=== PATIENT | female | born 1965 | race Asian ===

== ENCOUNTER 2020-07-29 00:45 | Emergency (ER) | payer OTHER ==
[2020-07-29 01:01] VITALS: BP 134/92
[2020-07-29] MEDS ORDERED: IBUPROFEN 600 MG TABLET PO STA (01:22)
[2020-07-29] MEDS ORDERED: ACETAMINOPHEN 325 MG TABLET PO STA (01:22)
--- NOTE | 2020-07-29 01:28 | ED Physician Documentation ---
History of Present Illness - Stated complaint Stated Complaint: HEAD PX - Chief complaint Chief Complaint: Trauma Hd/Nk - History obtained from History obtained from: Patient - Additonal information Additional information: She comes emergency department complaining of head pain after standing up and hitting her head on an overhanging cabinet above her. Cabinet was made of wood. Patient states that she did not experience any dizziness or nausea. She has not had any focal neurologic symptoms. She did not have any visual changes at that time. Patient states that the main reason she her decided to come in was that she continue to have pain in the area where she hit her head and that moving around would make it hurt more. Patient states that she has been able to walk normally. She did not lose consciousness. She states that at worst her pain was a 7 or 8 out of 10, but now it is only 4-5. No other complaints at this time. Review of Systems Ten Systems: 10 systems reviewed and negative Constitutional: reports: Reviewed and negative Eyes: reports: Reviewed and negative Ears: reports: Reviewed and negative Nose: reports: Reviewed and negative Throat: reports: Reviewed and negative Cardiac: reports: Reviewed and negative Respiratory: reports: Reviewed and negative GI: reports: Reviewed and negative : reports: Reviewed and negative Skin: reports: Reviewed and negative Musculoskeletal: reports: Reviewed and negative Neurologic: reports: Headache, Head injury. denies: Focal weakness, Numbness, Difficulty speaking, Confused, LOC Psychiatric: reports: Reviewed and negative Endocrine: reports: Reviewed and negative Immunocompromised: reports: Reviewed and negative PD PAST MEDICAL HISTORY - Past Medical History Past Medical History: Yes Respiratory: Other HEENT: Other Other Past Medical History: Seasonal Allergy - Past Surgical History Past Surgical History: Yes /CARD SERVICES SPECIALIST: LEEP (Cervical surgery), Other - Present Medications Home Medications: Ambulatory Orders Medication Instructions Recorded Confirmed Cetirizine HCl 10 mg PO DAILY PRN 07/29/20 07/29/20 Mometasone Furoate [Nasonex] 1 spray NS DAILY PRN 07/29/20 07/29/20 Montelukast Sodium 10 mg PO DAILY 07/29/20 07/29/20 - Allergies Allergies/Adverse Reactions: Allergies Allergy/AdvReac Type Severity Reaction Status Date / Time IV dye ct contrast Allergy Itching Uncoded 07/29/20 01:02 - Social History Does the pt smoke?: No Smoking Status: Never smoker Does the pt drink ETOH?: Yes Does the pt have substance abuse?: No - Immunizations Immunizations are current?: Yes - POLST Patient has POLST: No PD ED PE NORMAL - Vitals Vital signs reviewed: Yes - General General: Alert and oriented X 3, No acute distress, Well developed/nourished - HEENT HEENT: Atraumatic, PERRL, EOMI, Moist mucous membranes - Neck Neck: Supple, no meningeal sign - Cardiac Cardiac: RRR, No murmur, Strong equal pulses - Respiratory Respiratory: No respiratory distress, Clear bilaterally - Abdomen Abdomen: Normal bowel sounds, Soft, Non tender, Non distended - Derm Derm: Normal color, Warm and dry, No rash - Extremities Extremities: No deformity, No edema - Neuro Neuro: Alert and oriented X 3, 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 I do not find indication for emergent imaging at this time. We have discussed home management of the sx, as well as the usual indications for return. Departure - Departure Disposition: 01 Home, Self Care Clinical Impression: Closed head injury Qualifiers: Encounter type: initial encounter Qualified Code(s): S09.90XA - Unspecified injury of head, initial encounter Condition: Stable Instructions: ED Head Injury Closed Comments: There is no evidence of a serious injury to your head at this time. The nature of your head trauma, as well as the lack of associated symptoms to go along with the pain in your head, makes the likelihood of bleeding in the brain extremely low. You may take ibuprofen and Tylenol as needed for the pain. You may use an ice pack also. You may engage in what ever activity you feel up to doing. Please follow-up with your primary care physician as needed Discharge Date/Time: 07/29/20 01:34
== END 2020-07-29 01:34 | disposition home or self-care (01) ==
LOC: ED 00:45
DX: S09.90XA Unspecified injury of head, initial encounter (principal); W22.8XXA Striking against or struck by other objects, initial encounter; Y93.F9 Activity, other caregiving
CPT/HCPCS: 99282; A9270

== ENCOUNTER 2020-10-06 09:15 | Outpatient (CLI) | payer OTHER ==
--- NOTE | 2020-10-13 14:21 | Mammography Report ---
BILATERAL DIGITAL SCREENING MAMMOGRAM 3D/2D: 10/06/2020 CLINICAL: Routine screening. No prior exams were available for comparison. The tissue of both breasts is heterogeneously dense. T his may lower the sensitivity of mammography. No significant masses, calcifications, or other findings are seen in either breast. IMPRESSION: NEGATIVE There is no mammographic evidence of malignancy. A 1 year screening mammogram is recommended. This exam was interpreted at Station ID: [id number]. NOTE: For mammograms, a report in lay terms will be sent to the patient. Approximately 15% of breast malignancies will not be visualized mammographically. In the management of a palpable breast mass, a negative mammogram must not discourage biopsy of a clinically suspicious lesion. Electronically Signed By: Marvin [email or web address]:10/13/2020 09:05:27 ACR BI-RADS Category 1: Negative 3341F PARENCHYMAL PATTERN: (D) - The breast(s) demonstrate(s) heterogeneously dense fibroglandular sunny chamberlain. BI-RADS CATEGORY: (1) - 1 RECOMMENDATION: (ANNUAL) - Recommend routine annual screening mammography. [id number] 1 year screening LATERALITY: (B)
== END 2020-10-06 09:16 | disposition home or self-care (01) ==
LOC: DI.N 09:15
PROVIDERS: ATTEND Nurse Practitioner
DX: Z12.31 Encounter for screening mammogram for malignant neoplasm of breast (principal)

== ENCOUNTER 2020-11-15 08:00 | Outpatient (CLI) | payer OTHER ==
[2020-11-15 19:14] LABS: BASOPHILS # (AUTO) 0.1 10^3/uL (0.0-0.1); BASOPHILS % (AUTO) 1.4 %; EOSINOPHILS # (AUTO) 0.1 10^3/uL (0.0-0.7); EOSINOPHILS % (AUTO) 1.4 %; HGB - HEMOGLOBIN 14.6 g/dL (12.0-16.0); LYMPHOCYTES # (AUTO) 2.7 10^3/uL (1.5-3.5); LYMPHOCYTES % (AUTO) 46.6 %; MEAN CORPUSCULAR HEMOGLOBIN 30.6 pg (27.0-31.0); MEAN CORPUSCULAR HGB CONC 32.4 g/dL (32.0-36.0); MEAN CORPUSCULAR VOLUME 94.3 fL (81.0-99.0); MEAN PLATELET VOLUME 10.4 fL (7.9-10.8); MONOCYTES # (AUTO) 0.5 10^3/uL (0.0-1.0); MONOCYTES % (AUTO) 7.9 %; NEUTROPHILS # (AUTO) 2.5 10^3/uL (1.5-6.6); NEUTROPHILS % (AUTO) 42.5 %; PLT - PLATELET COUNT 310 10^3/uL (130-450); RED BLOOD COUNT 4.77 10^6/uL (4.20-5.40); RED CELL DISTRIBUTION WIDTH 12.5 % (12.0-15.0); WHITE BLOOD COUNT 5.8 x10^3/uL (4.8-10.8)
[2020-11-15 19:32] LABS: ALKALINE PHOSPHATASE 69 IU/L (42-121); ALT ALANINE AMINOTRANSFERASE 25 IU/L (10-60); AST ASPARTATE AMINOTRANSFERASE 33 IU/L (10-42); BILIRUBIN,TOTAL 1.5 mg/dL (0.2-1.0); BUN - BLOOD UREA NITROGEN 13 mg/dL (6-20); CALCIUM 10.2 mg/dL (8.5-10.3); CARBON DIOXIDE - CO2 29 mmol/L (21-32); CHLORIDE 100 mmol/L (101-111); CHOL/HDL RATIO 3.4 (<4.4); CHOLESTEROL 275 mg/dL; CREATININE 0.8 mg/dL (0.4-1.0); GLUCOSE 95 mg/dL (70-100); HDL CHOLESTEROL 82 mg/dL; LDL CHOLESTEROL,CALCULATED 171 mg/dL; LDL/HDL RATIO 2.1 (<4.4); TOTAL PROTEIN 7.5 g/dL (6.7-8.2); VLDL CHOLESTEROL 22 mg/dL
== END 2020-11-15 23:59 | disposition home or self-care (01) ==
LOC: LAB.WCP 08:00
PROVIDERS: ATTEND Nurse Practitioner
DX: Z00.00 Encounter for general adult medical examination without abnormal findings (principal); Z13.29 Encounter for screening for other suspected endocrine disorder; Z13.228 Encounter for screening for other metabolic disorders; Z13.220 Encounter for screening for lipoid disorders
CPT/HCPCS: 36415; 80053; 80061; 83721; 84443; 85025

== ENCOUNTER 2021-11-06 14:36 | Outpatient (CLI) | payer OTHER ==
[2021-11-06] MEDS ORDERED: GADOBUTROL 7.5 MMOL/7.5 ML VIAL ONE (14:54)
--- NOTE | 2021-11-06 15:57 | MRI Report ---
PROCEDURE: Brain W/WO INDICATIONS: ANEURYSM OF CAROTID ARTERY CONTRAST: IV CONTRAST: Gadavist ml: 5.7 TECHNIQUE: Noncontrast axial T1 spin echo, axial T2 fast spin echo, sagittal and axial FLAIR, coronal T2 fast sp in echo, axial gradient echo, axial diffusion and ADC through the brain. After the administration of contrast, axial and coronal T1 spin echo with fat saturation through the brain. COMPARISON: None. FINDINGS: Image quality: Excellent. CSF spaces: Basal cisterns are patent. No extra-axial fluid collections. Ventricles are normal in size and shape. Brain: No midline shift. No intracranial bleeds or masses. No abnormal intracranial enhancement. M ild generalized brain parenchymal volume loss can be seen. Multiple foci of T2-weighted hyperintensit y can be seen within the white matter, including juxtacortical lesions. The brainstem appears nathalia l. Diffusion-weighted images demonstrate no acute ischemic insults. No chronic ischemic insults. N ormal intravascular flow voids are present. Skull and face: Calvarial marrow is normal in signal. Orbits appear normal. Sinuses: Sinuses and mastoids appear clear. IMPRESSION: To the limits of this standard protocol study, no aneurysms are detected. For further ev aluation of intracranial aneurysm, please consider an intracranial MR angiogram. Scattered foci of T2-weighted hyperintensity are seen, including within the juxtacortical white matte r. Please consider a developing process, including multiple sclerosis. No masses or abnormal enhancement can be seen. Reviewed by: Alex Mensah MD on 11/06/2021 2:55 PM [place] Approved by: Alex Mensah MD on 11/06/2021 2:55 PM [facility] Station ID: [id number]
[2021-11-07] MEDS ORDERED: GADOBUTROL 7.5 MMOL/7.5 ML VIAL IVP ONE (12:20)
== END 2021-11-06 14:37 | disposition home or self-care (01) ==
LOC: DI 14:36
PROVIDERS: ATTEND Student in an Organized Health Care Education/Training Program
DX: I72.0 Aneurysm of carotid artery (principal); R90.89 Other abnormal findings on diagnostic imaging of central nervous system
CPT/HCPCS: 70553; A9585

== ENCOUNTER 2021-12-26 10:50 | Outpatient (CLI) | payer OTHER ==
--- NOTE | 2021-12-27 08:14 | Mammography Report ---
BILATERAL DIGITAL SCREENING MAMMOGRAM 3D/2D: 12/26/2021 CLINICAL: Routine screening. Comparison is made to exams dated: 10/06/2020 mammogram, 10/19/2016 mammogram, 09/07/2015 mammogram, a nd 08/11/2014 mammogram - [facility]. The tissue of both breasts is heterogeneousl y dense. This may lower the sensitivity of mammography. No significant masses, calcifications, or other findings are seen in either breast. There has been no significant interval change. IMPRESSION: NEGATIVE There is no mammographic evidence of malignancy. A 1 year screening mammogram is recommended. This exam was interpreted at Station ID: [id number]. NOTE: For mammograms, a report in lay terms will be sent to the patient. Approximately 15% of breast malignancies will not be visualized mammographically. In the management of a palpable breast mass, a negative mammogram must not discourage biopsy of a clinically suspicious lesion. Electronically Signed By: Tyson Michel M.D. [email or web address]:12/26/2021 15:35:57 ACR BI-RADS Category 1: Negative 3341F PARENCHYMAL PATTERN: (D) - The breast(s) demonstrate(s) heterogeneously dense fibroglandular sunny chamberlain. BI-RADS CATEGORY: (1) - 1 RECOMMENDATION: (ANNUAL) - Recommend routine annual screening mammography. [id number] 1 year screening LATERALITY: (B)
== END 2021-12-26 10:51 | disposition home or self-care (01) ==
LOC: DI.N 10:50
DX: Z12.31 Encounter for screening mammogram for malignant neoplasm of breast (principal)